=== PATIENT | female | born 1985 ===

== ENCOUNTER 2018-03-13 22:01 | Emergency (ER) | payer OTHER ==
[2018-03-13 22:38] VITALS: RESP 18; O2SAT 99
[2018-03-13 23:13] LABS: PH,URINE 6.5 (4.7-8.0); URINE APPEARANCE CLEAR (CLEAR); URINE BILIRUBIN NEGATIVE (NEGATIVE); URINE BLOOD NEGATIVE (NEGATIVE); URINE COLOR COLORLESS (YELLOW); URINE GLUCOSE (UA) NEGATIVE (NEGATIVE); URINE LEUKOCYTE ESTERASE NEGATIVE Leu/uL (NEGATIVE); URINE PROTEIN NEGATIVE mg/dL (<30 mg/dL); URINE UROBILINOGEN 0.2 E.U./dL (<1 E.U./dL)
--- NOTE | 2018-03-13 23:19 | ED PDOC ---
Arrival/HPI - General Chief Complaint: Abdominal Pain Time Seen by Provider: 03/13/18 22:04 Historian: Patient - History of Present Illness Narrative History of Present Illness (Text): 03/13/18 23:16 33-year-old female who states last menstrual period was in mid January presents today with vaginal bleeding. Patient states she believes she is about 5 weeks . Patient states this morning she developed lower abdominal spotting which went away and then this evening she developed some cramping and again develop some more bleeding. She denies fevers or chills. She denies chest pain or shortness of breath. Patient denies nausea vomiting diarrhea or constipation. Patient denies any urinary symptoms. Denies vaginal discharge. No other complaints patient states she had a miscarriage at approximately 8 week fetus 4 years ago. Past Medical History - Provider Review Nursing Documentation Reviewed: Yes - Travel History Have you recently traveled outside [place] w/in the past 3 mons?: No - Psychiatric Hx Substance Use: No Family/Social History - Physician Review Nursing Documentation Reviewed: Yes Family/Social History: Unknown Family HX Smoking Status: Never Smoked Hx Alcohol Use: No Hx Substance Use: No Allergies/Home Meds Allergies/Adverse Reactions: Allergies No Known Allergies Allergy (Verified 03/13/18 22:38) Review of Systems - Review of Systems Constitutional: absent: Fatigue, Fevers Respiratory: absent: SOB, Cough Cardiovascular: absent: Chest Pain, Palpitations Gastrointestinal: Abdominal Pain. absent: Constipation, Nausea, Vomiting Genitourinary Female: Vaginal Bleeding. absent: Dysuria, Frequency, Hematuria, Vaginal Discharge Musculoskeletal: absent: Arthralgias, Back Pain, Neck Pain Skin: absent: Rash, Pruritis Neurological: absent: Headache, Dizziness Psychiatric: absent: Anxiety, Depression, Suicidal Ideation Physical Exam Vital Signs Reviewed: Yes Vital Signs Temp Pulse Resp BP Pulse Ox 03/14/18 01:46 98.1 F 76 18 122/86 99 03/14/18 01:45 98.1 F 76 18 122/86 99 03/14/18 00:02 79 18 118/75 100 03/13/18 22:35 97.9 F 84 18 120/82 99 Temperature: Afebrile Blood Pressure: Normal Pulse: Regular Respiratory Rate: Normal Appearance: Positive for: Well-Appearing, Non-Toxic, Comfortable Pain Distress: None Mental Status: Positive for: Alert and Oriented X 3 - Systems Exam Head: Present: Atraumatic Mouth: Present: Moist Mucous Membranes Neck: Present: Normal Range of Motion Respiratory/Chest: Present: Clear to Auscultation, Good Air Exchange. No: Respiratory Distress, Accessory Muscle Use Cardiovascular: Present: Regular Rate and Rhythm, Normal S1, S2. No: Murmurs Abdomen: No: Tenderness, Distention, Peritoneal Signs, Rebound, Guarding Genitourinary/Pelvic Exam: Present: Normal External Genitalia, Cervical os Closed, Other (chaparoned by shivam VEE emt. ). No: Vaginal Discharge, Vaginal Bleeding, Vaginal Lesions, Adenexal Tenderness, Adenexal Mass, Cervical Motion Tendernes, Odor Back: Present: Normal Inspection. No: CVA Tenderness, Midline Tenderness, Paraspinal Tenderness Neurological: Present: GCS=15, Speech Normal Skin: Present: Warm, Dry, Normal Color. No: Rashes Psychiatric: Present: Alert, Oriented x 3 Medical Decision Making ED Course and Treatment: 03/13/18 23:18 Patient is nontoxic well appearing in no distress. vital signs are stable. CBC: wnl CMP: wnl Beta hC TYPE AND SCREEN: o+ Urinalysis: trace ketones, no leukocytes urine culture pending Ultrasound: FINDINGS: Gestation: There is a single gestational sac in the uterus. The sac diameter 9.5 mm. There is a yolk sac, internal diameter approximately 2 mm. pole is not yet visible Uterus: Uterus measures approximately 9 x 3 x 5 cm. There is a nabothian cyst in the cervix. Ovaries: Left ovary measures 2.5 x 2.3 x 2.4 cm.There is expected blood flow on Doppler imaging Right ovary is not identified. Free fluid: No free fluid. IMPRESSION: Intrauterine gestation too early to date Followup suggested development of pole Discussed all the results the patient. advised f/u with the finish molder within the next 2 days. advised immediate return if symptoms worsen,persist or if new symptoms develop. Patient verbalizes understanding of discharge instructions and need for immediate followup. all aspects of this case were discussed the attending of record. Impression: threatened Tylenol every 4 hours as needed for pain Increase fluids Followup with the radio installer within the next 2 days Return immediately if symptoms worsen persist or if new symptoms develop: High fevers, heavy bleeding, severe abdominal pain, vomiting, diarrhea, dizziness or weakness or any other concerning symptoms develop. vitamins daily. - Lab Interpretations Microbiology Results: Microbiology Results 03/13/18 23:10 Urine Urine Culture - Final No Growth (<1,000 CFU/ML) Lab Results: 03/13/18 23:35 03/13/18 23:35 Lab Results 03/13/18 23:35: WBC 9.7, RBC 3.92, Hgb 11.5 L, Hct 34.5 L, MCV 88.0, MCH 29.3, MCHC 33.3, RDW 12.2, Plt Count 279, MPV 9.8, Gran % 70.6 H, Lymph % (Auto) 21.8 L, Elliott % (Auto) 7.1 H, Eos % (Auto) 0.3 L, Baso % (Auto) 0.2, Gran # 6.82 H, Lymph # (Auto) 2.1, Elliott # (Auto) 0.7 H, Eos # (Auto) 0.0, Baso # (Auto) 0.02 03/13/18 23:35: Blood Type O POSITIVE, Antibody Screen Negative, BBK History Checked No verified bt 03/13/18 23:35: Beta HCG, Quant [id number] H 03/13/18 23:35: Sodium 139, Potassium 3.7, Chloride 103, Carbon Dioxide 23, Anion Gap 17, BUN 10, Creatinine 0.6 L, Est GFR ( Amer) > 60, Est GFR ( Non-Af Amer) > 60, Random Glucose 101, Calcium 8.9, Total Bilirubin 1.4 H, AST 22, ALT 18, Alkaline Phosphatase 62, Total Protein 8.3, Albumin 4.5, Globulin 3.9, Albumin/Globulin Ratio 1.2 03/13/18 23:10: Urine Color Colorless, Urine Appearance Clear, Urine pH 6.5, Ur Specific [place] 1.010, Urine Protein Negative, Urine Glucose (UA) Negative, Urine Ketones Trace H, Urine Blood Negative, Urine Nitrate Negative, Urine Bilirubin Negative, Urine Urobilinogen 0.2, Ur Leukocyte Esterase Negative - RAD Interpretation Radiology Orders: 03/13/18 22:41 OB TRANSVAGINAL [US] Stat Disposition/Present on Arrival - Present on Arrival Any Indicators Present on Arrival: No History of DVT/PE: No History of Uncontrolled Diabetes: No Urinary Catheter: No History of Decub. Ulcer: No History Surgical Site Infection Following: None - Disposition Have Diagnosis and Disposition been Completed?: Yes Diagnosis: Threatened Disposition: HOME/ ROUTINE Disposition Time: 00:12 Patient Plan: Discharge Condition: GOOD Discharge Instructions (ExitCare): Threatened Miscarriage (DC) Additional Instructions: Tylenol every 4 hours as needed for pain Increase fluids Followup with the radio installer within the next 2 days Return immediately if symptoms worsen persist or if new symptoms develop: High fevers, heavy bleeding, severe abdominal pain, vomiting, diarrhea, dizziness or weakness or any other concerning symptoms develop. vitamins daily. Prescriptions: Multivit/Folic Acid/I [ Plus] 1 tab PO DAILY #30 tab Referrals: PCP,NO [Primary Care Provider] - Follow up with primary Abigail Rose MD [Staff Provider] - [facility] [Outside] - [facility] up with primary [facility] [place] - Follow up with primary Fe Pyle MD [Staff Provider] - Follow up with primary Forms: [employer] (Green[place]ic), WORK NOTE
--- NOTE | 2018-03-14 00:09 | US ---
EXAM: US , Transvaginal EXAM DATE/TIME: 03/13/2018 10:41 PM CLINICAL HISTORY: 33 years old, female; Pain; complicated by abdominal or pelvic pain; Lower; First trimester; Gestational age or lmp: 02/06/2018; ; Additional info: Pain/vaginal bleeding TECHNIQUE: Real-time transvaginal obstetrical ultrasound of the maternal pelvis and a first trimester with image documentation. Transvaginal imaging was used for better evaluation of the fetus and adnexa. COMPARISON: There are no prior studies for comparison. FINDINGS: Gestation: There is a single gestational sac in the uterus. The sac diameter 9.5 mm. There is a yolk sac, internal diameter approximately 2 mm. pole is not yet visible Uterus: Uterus measures approximately 9 x 3 x 5 cm. There is a nabothian cyst in the cervix. Ovaries: Left ovary measures 2.5 x 2.3 x 2.4 cm.There is expected blood flow on Doppler imaging Right ovary is not identified. Free fluid: No free fluid. IMPRESSION: Intrauterine gestation too early to date Followup suggested development of pole
[2018-03-14 00:10] LABS: BASO # 0.02 K/mm3 (0.0-2.0); BASO % 0.2 % (0.0-3.0); EOS % 0.3 % (1.5-5.0); GRAN # 6.82 (1.4-6.5); GRAN % 70.6 % (50.0-68.0); HEMOGLOBIN 11.5 g/dL (12.0-16.0); LYMPH # 2.1 (1.2-3.4); LYMPH % 21.8 % (22.0-35.0); MEAN CORPUSCULAR HEMOGLOBIN 29.3 pg (25.0-35.0); MEAN CORPUSCULAR HGB CONC 33.3 g/dl (31.0-37.0); MEAN PLATELET VOLUME 9.8 fl (7.0-11.0); MONO # 0.7 (0.1-0.6); MONO % 7.1 % (1.0-6.0); RBC 3.92 10^6/uL (3.5-6.1); RED CELL DISTRIBUTION WIDTH 12.2 % (11.5-14.5); WHITE BLOOD COUNT 9.7 10^3/ul (4.5-11.0)
[2018-03-14 00:18] LABS: ALB/GLOB RATIO 1.2 (1.1-1.8); ALBUMIN 4.5 g/dL (3.0-4.8); ALT/SGPT 18 U/L (7-56); AST/SGOT 22 U/L (14-36); BLOOD UREA NITROGEN 10 mg/dL (7-21); CALCIUM 8.9 mg/dL (8.4-10.5); GFR AFRICAN-AMERICAN > 60; GFR NON-AFRICAN AMERICAN > 60
[2018-03-14 01:46] VITALS: BP 122/86; PULSE 76; TEMP 98.1
== END 2018-03-14 01:46 | disposition home or self-care (01) ==
LOC: ED 22:01
DX: O20.0 Threatened abortion (principal); Z3A.00 Weeks of gestation of pregnancy not specified